=== PATIENT | female | born 1955 | race African-American/Black ===

== ENCOUNTER 2023-11-19 11:48 | Inpatient (IN) | payer MEDICARE, MEDICAID ==
[~2023-11-19] VITALS: Ht 165.1 cm; Wt 83.9 kg
[~2023-11-19 11:48] MED LIST: ASPI-1406 PO; BISA-81 PO; CARV25TA47 PO; CLIN-194 PO; CYCL5TAB PO; FURO20TA4 PO; HYDR-519 PO; LISI20TA31 PO; METF-414 PO; PENT400T16 PO; SIMV-43 PO
[2023-11-19 13:08] LABS: BASOPHILS % 0.6 % (0.0-2.0); EOSINOPHILS % 2.3 % (0.0-5.0); HEMATOCRIT. 38.6 % (36.0-48.0); HEMOGLOBIN. 12.8 g/dL (12.0-16.0); LYMPHOCYTES % 13.7 % (20.0-50.0); MEAN CORPUSCULAR HEMOGLOBIN 31.4 pg (28.0-32.0); MEAN CORPUSCULAR HGB CONC 33.2 g/dL (31.0-37.0); MEAN CORPUSCULAR VOLUME 94.6 fL (81.0-99.0); MONOCYTES % 8.8 % (2.0-8.0); NEUTROPHILS % 74.6 % (40.0-76.0); RED BLOOD CELL COUNT 4.08 mill/uL (4.2-5.4); RED CELL DISTRIBUTION WIDTH 12.4 % (11.6-14.6)
[2023-11-19 13:12] LABS: DIFFERENTIAL COMMENT 1
[2023-11-19 13:17] LABS: CHLORIDE 95 mEq/L (98-107); SODIUM 129 mEq/L (136-145)
[2023-11-19 13:18] LABS: CALCIUM 9.9 mg/dL (8.7-10.4); CARBON DIOXIDE 26 mEq/L (21-32)
[2023-11-19 13:23] LABS: CREATININE 2.3 mg/dL (0.6-1.0); GLUCOSE 179 mg/dL (70-105); UREA NITROGEN BLOOD 43 mg/dL (9-23)
[2023-11-19 13:25] LABS: ALANINE AMINOTRANSFERASE < 7 IU/L (10-49); ALBUMIN 4.4 g/dL (3.2-4.8); ASPARTATE AMINOTRANSFERASE 10 IU/L (<34); BILIRUBIN TOTAL 0.4 mg/dL (0.1-1.0); PROTEIN TOTAL 7.5 g/dL (6.0-8.3)
[2023-11-19 13:29] LABS: TROPONIN I HIGH SENSITIVITY < 4 ng/L (3.0-34)
[2023-11-19 16:25] LABS: TROPONIN I HIGH SENSITIVITY < 4 ng/L (3.0-34)
[2023-11-19 20:00] VITALS: BP 117/72; PULSE 96; RESP 18; TEMP 97.3
[2023-11-20] VITALS (7 sets, daily range): BP systolic 96–117; BP diastolic 42–72; PULSE 9–100; RESP 18–20; TEMP 97–98
[2023-11-20] MEDS ORDERED: HYDROCODONE/ACETAMINOPHEN 10/325MG TABLET PO PRN (01:00)
[2023-11-20] MEDS ORDERED: NALOXONE HCL 0.4MG/ML VIAL IV PRN (01:15)
[2023-11-20] MEDS: CYCLOBENZAPRINE 10MG TABLET PO SCH (06:05)
[2023-11-20 07:29] LABS: CHLORIDE 98 mEq/L (98-107); POTASSIUM 4.7 mEq/L (3.5-5.1); SODIUM 133 mEq/L (136-145)
[2023-11-20 07:32] LABS: CALCIUM 9.6 mg/dL (8.7-10.4); CARBON DIOXIDE 24 mEq/L (21-32)
[2023-11-20 07:37] LABS: CREATININE 1.7 mg/dL (0.6-1.0); GLUCOSE 148 mg/dL (70-105); TRIGLYCERIDE 131 mg/dL (0-150); UREA NITROGEN BLOOD 37 mg/dL (9-23)
[2023-11-20 07:38] LABS: ALANINE AMINOTRANSFERASE < 7 IU/L (10-49); HEMATOCRIT 36.7 % (36.0-48.0); HEMOGLOBIN 12.6 g/dL (12.0-16.0); LDL CHOLESTEROL 81 mg/dL (5-100); MEAN CORPUSCULAR HGB CONC 34.3 g/dL (31.0-37.0); MEAN CORPUSCULAR VOLUME 93.3 fL (81.0-99.0); RED BLOOD CELL COUNT 3.93 mill/uL (4.2-5.4); RED CELL DISTRIBUTION WIDTH 12.2 % (11.6-14.6); WHITE BLOOD COUNT 9.2 x1000/uL (4.5-11.0)
[2023-11-20 07:39] LABS: ASPARTATE AMINOTRANSFERASE 10 IU/L (<34); CHOLESTEROL 167 mg/dL (<200); HDL CHOLESTEROL 55 mg/dL (>65)
[2023-11-20 07:40] LABS: BILIRUBIN TOTAL 0.4 mg/dL (0.1-1.0)
[2023-11-20] MEDS: PENTOXIFYLLINE 400MG TABLET PO SCH (08:13)
[2023-11-20] MEDS: CARVEDILOL 12.5MG TABLET PO SCH (08:13)
[2023-11-20] MEDS: LOSARTAN 25 MG TABLET PO SCH (08:13)
[2023-11-20] MEDS: BLOOD SUGAR DIAGNOSTIC STRIP TEST SCH (08:19)
[2023-11-20] MEDS: OMEPRAZOLE 20MG CAPSULE EXTENDED RELEASE PO SCH (13:58)
[2023-11-20] MEDS: ASPIRIN 81MG TABLET PO SCH (13:58)
[2023-11-20 18:51] LABS: CLARITY URINE CLEAR (CLEAR); COLOR URINE YELLOW (YELLOW); GLUCOSE URINE 2+ (NEGATIVE); KETONES URINE NEGATIVE (NEGATIVE); LEUKOCYTE ESTERASE URINE NEGATIVE (NEGATIVE); NITRITE URINE NEGATIVE (NEGATIVE); OCCULT BLOOD URINE NEGATIVE (NEGATIVE); PROTEIN URINE NEGATIVE (NEGATIVE); SPECIFIC GRAVITY URINE 1.008 (1.005-1.030); UROBILINOGEN URINE 0.2 E.U./dL (0.2-1.0)
[2023-11-20 18:55] LABS: *AMPHETAMINES SCREEN URINE NEGATIVE (NEGATIVE); *BARBITURATES SCREEN URINE NEGATIVE (NEGATIVE); *BENZODIAZEPINES SCREEN URINE NEGATIVE (NEGATIVE); *COCAINE SCREEN URINE NEGATIVE (NEGATIVE); METHADONE URINE SCREEN NEGATIVE (NEGATIVE); OPIATES URINE SCREEN NEGATIVE (NEGATIVE)
[2023-11-20 18:56] LABS: CANNABINOID URINE SCREEN PRESUMPTIVE POSITIVE (NEGATIVE); ECSTASY MDMA SCREEN URINE NEGATIVE (NEGATIVE); PHENCYCLIDINE URINE SCREEN NEGATIVE (NEGATIVE)
[2023-11-20 19:14] LABS: BACTERIA URINE NONE SEEN; RBC URINE NONE SEEN /hpf (0-2); SQUAMOUS EPITHELIAL CELL URINE NONE SEEN /lpf (RARE/1+); WBC URINE NONE SEEN /hpf (0-2)
[2023-11-20] MEDS: ATORVASTATIN CALCIUM 40MG TABLET PO SCH (21:19)
[2023-11-20] MEDS: CYCLOBENZAPRINE 10MG TABLET PO PRN (22:31)
[2023-11-21] VITALS: BP 105/68; PULSE 86; RESP 18; TEMP 97.7
[2023-11-21 04:00] VITALS: BP 102/58; PULSE 89; RESP 18; TEMP 97.3
[2023-11-21 08:00] VITALS: BP 123/74; PULSE 90; RESP 18; TEMP 97.5
[2023-11-21 12:00] VITALS: BP 130/78; PULSE 98; RESP 18; TEMP 97.3
[2023-11-21 16:00] VITALS: BP 97/57; PULSE 79; RESP 20; TEMP 98.2
[2023-11-21 20:01] VITALS: BP 114/67; PULSE 89; RESP 18; TEMP 97.5
[2023-11-21] MEDS ORDERED: DEXTROSE 50% WATER 50ML SYRINGE IV PRN (21:15)
[2023-11-21] MEDS: INSULIN GLARGINE 100 UNITS/ML SUBCUT SCH (22:58)
[2023-11-22] VITALS: BP 94/54; PULSE 82; RESP 20; TEMP 97.7
[2023-11-22 04:00] VITALS: BP 97/53; PULSE 87; RESP 18; TEMP 98.2
[2023-11-22] MEDS ORDERED: BLOOD SUGAR DIAGNOSTIC STRIP TEST SCH (07:20)
[2023-11-22] MEDS: INSULIN LISPRO 100 UNITS/ML SUBCUT SCH (07:50)
[2023-11-22 08:00] VITALS: BP 106/64; PULSE 85; RESP 20; TEMP 98
[2023-11-22] MEDS: FAMOTIDINE 20MG TABLET PO SCH (08:56)
[2023-11-22] MEDS ORDERED: OMEP40CA20 MT (10:44)
[2023-11-22] MEDS: MAGNESIUM/ALUMINUM HYDROXIDE/SIMETHICONE 30ML UDC PO NR (11:44)
[2023-11-22 12:00] VITALS: BP 121/73; PULSE 94; TEMP 98.5; O2SAT 96
== END 2023-11-22 12:10 | disposition home or self-care (01) | DRG 391 ==
LOC: ER 13:21 → 7WST 16:15 → EDBEDREQTM 16:16 → EDBEDREQ 16:16 → 6WST 11-21 12:23
PROVIDERS: ADMIT Internal Medicine; ATTEND Internal Medicine
DX: K21.9 Gastro-esophageal reflux disease without esophagitis (principal); N17.0 Acute kidney failure with tubular necrosis; I50.42 Chronic combined systolic (congestive) and diastolic (congestive) heart failure; E11.9 Type 2 diabetes mellitus without complications; E78.00 Pure hypercholesterolemia, unspecified; I11.0 Hypertensive heart disease with heart failure; Z95.810 Presence of automatic (implantable) cardiac defibrillator; F12.90 Cannabis use, unspecified, uncomplicated
CPT/HCPCS: 36415; 71045; 80053; 80061; 80305; 81003; 82962; 83036; 83880; 84484; 85025; 85027; 93005; 99285; J1815

== ENCOUNTER 2024-07-24 09:44 | Inpatient (IN) | payer MEDICARE, MEDICAID ==
[~2024-07-24] VITALS: Ht 160 cm; Wt 83.9 kg
[~2024-07-24 09:44] MED LIST changes: -CLIN-194 PO; -CYCL5TAB PO; +CYCL5TAB3 PO; +OMEP40CA20 MT
[2024-07-24 10:21] LABS: BASOPHILS % 0.4 % (0.0-2.0); HEMATOCRIT. 45.1 % (36.0-48.0); HEMOGLOBIN. 14.6 g/dL (12.0-16.0); LYMPHOCYTES % 7.2 % (20.0-50.0); MEAN CORPUSCULAR HEMOGLOBIN 32.1 pg (28.0-32.0); MEAN CORPUSCULAR HGB CONC 32.4 g/dL (31.0-37.0); MEAN CORPUSCULAR VOLUME 98.9 fL (81.0-99.0); MONOCYTES % 5.8 % (2.0-8.0); NEUTROPHILS % 86.6 % (40.0-76.0); RED BLOOD CELL COUNT 4.56 mill/uL (4.2-5.4); RED CELL DISTRIBUTION WIDTH 13.8 % (11.6-14.6)
[2024-07-24 10:39] LABS: DIFFERENTIAL COMMENT 1
[2024-07-24 10:42] LABS: CHLORIDE 99 mEq/L (98-107); CREATININE 1.7 mg/dL (0.6-1.0); GLUCOSE 254 mg/dL (70-105); POTASSIUM 4.4 mEq/L (3.5-5.1); SODIUM 135 mEq/L (136-145); UREA NITROGEN BLOOD 35 mg/dL (9-23)
[2024-07-24 10:43] LABS: CALCIUM 9.9 mg/dL (8.7-10.4); CARBON DIOXIDE 21 mEq/L (21-32); TROPONIN I HIGH SENSITIVITY 15 ng/L (3.0-34)
[2024-07-24 10:44] LABS: ALANINE AMINOTRANSFERASE < 7 IU/L (10-49); ALBUMIN 4.3 g/dL (3.2-4.8); ASPARTATE AMINOTRANSFERASE 10 IU/L (<34); BILIRUBIN DIRECT 0.2 mg/dL (<=3.0); BILIRUBIN TOTAL 0.7 mg/dL (0.1-1.0); PROTEIN TOTAL 7.7 g/dL (6.0-8.3)
[2024-07-24 11:05] LABS: LACTIC ACID 2.8 mmol/L (0.4-2.0)
[2024-07-24] MEDS: SODIUM CHLORIDE 0.9% 250 ML IV NR (12:19)
[2024-07-24] MEDS: CEFTRIAXONE 1GM/50ML 50 ML IV NR (12:24)
[2024-07-24] MEDS: ONDANSETRON HCL 4MG/2ML INJ IV ONE (12:28)
[2024-07-24] MEDS: METOPROLOL TARTRATE 5MG/5ML VIAL IV ONE (12:28)
[2024-07-24 13:30] LABS: TROPONIN I HIGH SENSITIVITY 13 ng/L (3.0-34)
[2024-07-24] MEDS ORDERED: ONDANSETRON HCL 4MG/2ML INJ IV PRN (15:45)
[2024-07-24] MEDS ORDERED: CLONIDINE 0.1MG TABLET PO PRN (15:45)
[2024-07-24] MEDS ORDERED: ACETAMINOPHEN 325MG TABLET PO PRN ×2 (15:45)
[2024-07-24] MEDS ORDERED: MAGNESIUM/ALUMINUM HYDROXIDE/SIMETHICONE 30ML UDC PO PRN (15:45)
[2024-07-24] MEDS ORDERED: GUAIFENESIN 200MG/10ML SUGAR FREE UDC PO PRN (15:45)
[2024-07-24] MEDS ORDERED: DOCUSATE SODIUM 100MG CAPSULE PO PRN (15:45)
[2024-07-24] MEDS ORDERED: DEXTROSE 50% WATER 50ML SYRINGE IV PRN (15:45)
[2024-07-24] MEDS ORDERED: IPRATROPIUM/ALBUTEROL 0.5-3(2.5)MG/3ML NEB HHN PRN (15:45)
[2024-07-24] MEDS: ENOXAPARIN 80MG/0.8ML SYR SUBCUT NR (16:50)
[2024-07-24] MEDS: BLOOD SUGAR DIAGNOSTIC STRIP TEST SCH (17:04)
[2024-07-24 17:18] LABS: INR 0.9; PROTHROMBIN TIME 10.4 sec (9.6-11.0)
[2024-07-24] MEDS: INSULIN LISPRO 100 UNITS/ML SUBCUT SCH (18:55)
[2024-07-24 19:52] LABS: CLARITY URINE CLOUDY (CLEAR); COLOR URINE YELLOW (YELLOW); GLUCOSE URINE 3+ (NEGATIVE); KETONES URINE 1+ (NEGATIVE); LEUKOCYTE ESTERASE URINE NEGATIVE (NEGATIVE); NITRITE URINE NEGATIVE (NEGATIVE); OCCULT BLOOD URINE NEGATIVE (NEGATIVE); PH URINE 5.5 (4.5-8.0); PROTEIN URINE TRACE (NEGATIVE); UROBILINOGEN URINE 0.2 E.U./dL (0.2-1.0)
[2024-07-24 19:53] LABS: *AMPHETAMINES SCREEN URINE NEGATIVE (NEGATIVE); *BARBITURATES SCREEN URINE NEGATIVE (NEGATIVE); *BENZODIAZEPINES SCREEN URINE NEGATIVE (NEGATIVE); *COCAINE SCREEN URINE NEGATIVE (NEGATIVE); CANNABINOID URINE SCREEN PRESUMPTIVE POSITIVE (NEGATIVE); ECSTASY MDMA SCREEN URINE NEGATIVE (NEGATIVE); METHADONE URINE SCREEN NEGATIVE (NEGATIVE); OPIATES URINE SCREEN NEGATIVE (NEGATIVE); PHENCYCLIDINE URINE SCREEN NEGATIVE (NEGATIVE)
[2024-07-24] MEDS: CARVEDILOL 12.5MG TABLET PO SCH (21:00)
[2024-07-24 21:11] LABS: BACTERIA URINE TRACE; RBC URINE 0-2 /hpf (0-2); SQUAMOUS EPITHELIAL CELL URINE FEW /lpf (RARE/1+); WBC URINE 0-2 /hpf (0-2)
[2024-07-24 21:14] VITALS: BP 128/72; PULSE 88; RESP 18; TEMP 36.2; O2SAT 98
[2024-07-25] VITALS (7 sets, daily range): BP systolic 102–133; BP diastolic 61–75; PULSE 77–97; RESP 17–20; TEMP 36.2–37; O2SAT 97–100
[2024-07-25 00:26] LABS: CREATINE KINASE 42 IU/L (34-145); TROPONIN I HIGH SENSITIVITY 12 ng/L (3.0-34)
[2024-07-25 06:16] LABS: CARBON DIOXIDE 25 mEq/L (21-32); CHLORIDE 101 mEq/L (98-107); POTASSIUM 4.1 mEq/L (3.5-5.1); SODIUM 137 mEq/L (136-145)
[2024-07-25 06:17] LABS: CALCIUM 9.4 mg/dL (8.7-10.4)
[2024-07-25 06:21] LABS: CREATININE 1.6 mg/dL (0.6-1.0); GLUCOSE 195 mg/dL (70-105)
[2024-07-25 06:22] LABS: LDL CHOLESTEROL 78 mg/dL (5-100); TRIGLYCERIDE 247 mg/dL (0-150); UREA NITROGEN BLOOD 45 mg/dL (9-23)
[2024-07-25 06:23] LABS: ALANINE AMINOTRANSFERASE < 7 IU/L (10-49); ALBUMIN 3.9 g/dL (3.2-4.8); ASPARTATE AMINOTRANSFERASE 9 IU/L (<34); CHOLESTEROL 191 mg/dL (<200); HDL CHOLESTEROL 65 mg/dL (>65)
[2024-07-25 06:24] LABS: BILIRUBIN TOTAL 0.5 mg/dL (0.1-1.0); PHOSPHORUS 2.8 mg/dL (2.5-4.9); PROTEIN TOTAL 7.1 g/dL (6.0-8.3)
[2024-07-25 06:25] LABS: T4 FREE 1.26 ng/dL (0.89-1.76); THYROID STIMULATING HORMONE 1.93 uIU/mL (0.55-4.78)
[2024-07-25 06:27] LABS: TROPONIN I HIGH SENSITIVITY 14 ng/L (3.0-34)
[2024-07-25 06:28] LABS: CREATINE KINASE 33 IU/L (34-145)
[2024-07-25] MEDS ORDERED: DEXTROSE 50% WATER 50ML SYRINGE IV PRN (07:45)
[2024-07-25 08:33] LABS: BASOPHILS % 0.3 % (0.0-2.0); EOSINOPHILS % 0.1 % (0.0-5.0); HEMATOCRIT. 40.2 % (36.0-48.0); HEMOGLOBIN. 13.1 g/dL (12.0-16.0); MEAN CORPUSCULAR HEMOGLOBIN 32.6 pg (28.0-32.0); MEAN CORPUSCULAR HGB CONC 32.6 g/dL (31.0-37.0); MEAN CORPUSCULAR VOLUME 99.8 fL (81.0-99.0); NEUTROPHILS % 75.6 % (40.0-76.0); RED BLOOD CELL COUNT 4.03 mill/uL (4.2-5.4); RED CELL DISTRIBUTION WIDTH 13.5 % (11.6-14.6); WHITE BLOOD COUNT 12.2 x1000/uL (4.5-11.0)
[2024-07-25 08:52] LABS: DIFFERENTIAL COMMENT 1
[2024-07-25] MEDS ORDERED: LISINOPRIL 40MG TABLET PO SCH (09:00)
[2024-07-25] MEDS: FUROSEMIDE 20MG TABLET PO SCH (09:36)
[2024-07-25] MEDS: FAMOTIDINE 20MG/2ML VIAL IV SCH (09:36)
[2024-07-25] MEDS: ASPIRIN 81MG EC TABLET PO SCH (09:36)
[2024-07-25] MEDS: INSULIN GLARGINE 100 UNITS/ML SUBCUT SCH (10:55)
[2024-07-25] MEDS: LACTATED RINGERS 1,000 ML IV SCH (10:56)
[2024-07-25] MEDS: BLOOD SUGAR DIAGNOSTIC STRIP TEST SCH (11:45)
[2024-07-25] MEDS: CEFTRIAXONE 1GM/50ML 50 ML IV SCH (13:47)
[2024-07-25] MEDS: METOCLOPRAMIDE HCL 5MG TABLET PO SCH (13:52)
[2024-07-25] MEDS: LACTULOSE 20G/30ML UDC PO NR (17:20)
[2024-07-25] MEDS: ENOXAPARIN 80MG/0.8ML SYR SUBCUT SCH (17:21)
[2024-07-26] VITALS: BP 137/58; PULSE 64; RESP 16; TEMP 36.6; O2SAT 98
[2024-07-26 04:00] VITALS: BP 109/64; PULSE 91; RESP 16; TEMP 36.2; O2SAT 96
[2024-07-26] MEDS: INSULIN LISPRO 100 UNITS/ML SUBCUT SCH (06:45)
[2024-07-26 08:00] VITALS: BP 130/66; PULSE 74; RESP 16; TEMP 36.6; O2SAT 97
[2024-07-26 11:57] LABS: POTASSIUM 4.1 mEq/L (3.5-5.1)
[2024-07-26 11:59] LABS: BASOPHILS % 0.4 % (0.0-2.0); HEMOGLOBIN. 11.9 g/dL (12.0-16.0); LYMPHOCYTES % 16.6 % (20.0-50.0); MEAN CORPUSCULAR HEMOGLOBIN 32.6 pg (28.0-32.0); MONOCYTES % 12.9 % (2.0-8.0); NEUTROPHILS % 69.1 % (40.0-76.0); RED BLOOD CELL COUNT 3.63 mill/uL (4.2-5.4); RED CELL DISTRIBUTION WIDTH 13.3 % (11.6-14.6)
[2024-07-26 12:00] VITALS: BP 140/66; PULSE 70; RESP 16; TEMP 36.8; O2SAT 98
[2024-07-26 12:03] LABS: CREATININE 1.5 mg/dL (0.6-1.0)
[2024-07-26 12:10] LABS: DIFFERENTIAL COMMENT 1
[2024-07-26] MEDS ORDERED: SACU1TAB7 (12:27)
[2024-07-26] MEDS ORDERED: EMPA10TA (12:27)
[2024-07-26] MEDS ORDERED: SPIR25TA6 (12:27)
[2024-07-26] MEDS ORDERED: AMLO5TAB88 (12:28)
[2024-07-26] MEDS ORDERED: DOCU-422 (12:45)
[2024-07-26] MEDS ORDERED: OMEP40CA20 MT (12:52)
[2024-07-26] MEDS ORDERED: LACT10SO81 MT ×2 (12:52→12:56)
[2024-07-26] MEDS ORDERED: TOPUD PO (12:56)
[2024-07-26] MEDS ORDERED: SUCR1TAB30 PO (12:56)
[2024-07-26 12:58] VITALS: BP 140/66; PULSE 70; TEMP 98.2; O2SAT 98
[2024-07-26] MEDS ORDERED: ONDA4TAB50 PO (13:06)
[2024-07-26 13:56] LABS: ADD RBC MORPHOLOGY YES; PLATELET ESTIMATE NORMAL
[2024-07-26] MEDS ORDERED: SULF1TAB48 MT ×2 (14:28→14:29)
== END 2024-07-26 15:00 | disposition home or self-care (01) | DRG 871 ==
LOC: ER 09:44 → EDBEDREQ 13:40 → EDBEDREQTM 13:40 → 5WST 21:34
PROVIDERS: ADMIT Internal Medicine; ATTEND Internal Medicine
DX: A41.9 Sepsis, unspecified organism (principal); K21.01 Gastro-esophageal reflux disease with esophagitis, with bleeding; I13.0 Hypertensive heart and chronic kidney disease with heart failure and stage 1 through stage 4 chronic kidney disease, or unspecified chronic kidney disease; I31.39 Other pericardial effusion (noninflammatory); N39.0 Urinary tract infection, site not specified; E11.22 Type 2 diabetes mellitus with diabetic chronic kidney disease; E11.43 Type 2 diabetes mellitus with diabetic autonomic (poly)neuropathy; E78.00 Pure hypercholesterolemia, unspecified; I48.91 Unspecified atrial fibrillation; K59.00 Constipation, unspecified; I50.9 Heart failure, unspecified; K31.84 Gastroparesis; N18.9 Chronic kidney disease, unspecified; Z79.1 Long term (current) use of non-steroidal anti-inflammatories (NSAID); Z91.148 Patient's other noncompliance with medication regimen for other reason; Z95.810 Presence of automatic (implantable) cardiac defibrillator; Z79.4 Long term (current) use of insulin; Z79.82 Long term (current) use of aspirin; Z79.84 Long term (current) use of oral hypoglycemic drugs; Z79.899 Other long term (current) drug therapy
CPT/HCPCS: 36415; 71045; 74018; 74176; 80048; 80053; 80061; 80076; 80305; 81003; 82550; 82962; 83036; 83605; 83735; 83880; 84100; 84145; 84439; 84443; 84484; 85025; 85049; 87077; 87426; 93005; 93306; 93970; 99285; A4606; J0696; J1650; J1815; J2405; J3490; J7120; J8597